=== PATIENT | female | born 1940 | race Caucasian/White ===

== ENCOUNTER → 2018-06-20 | Outpatient (CLI) | payer MEDICARE ==
--- NOTE | 2018-06-21 03:38 | US ---
EXAMINATION TYPE: US carotid duplex BILAT DATE OF EXAM: 06/20/2018 COMPARISON: NONE CLINICAL HISTORY: 77-year-old female I34.0, Nonrheumatic mitral (valve) insufficiency I65.23. No hx o f HTN. No hx of TIA or stroke. TECHNIQUE: Carotid duplex ultrasound examination. Indirect Doppler criteria was utilized. FINDINGS: EXAM MEASUREMENTS: RIGHT: Peak Systolic Velocity (PSV) cm/sec ----- Right CCA: 46.7 ----- Right ICA: 55.2 ----- Right ECA: 67.1 ICA/CCA ratio: 1.2 RIGHT: End Diastole cm/sec ----- Right CCA: 10.9 ----- Right ICA: 20.1 ----- Right ECA: 0.0 LEFT: Peak Systolic Velocity (PSV) cm/sec ----- Left CCA: 48.7 ----- Left ICA: 52.8 ----- Left ECA: 74.2 ICA/CCA ratio: 1.1 LEFT: End Diastole cm/sec ----- Left CCA: 12.9 ----- Left ICA: 9.5 ----- Left ECA: 30.3 VERTEBRALS (direction of flow): Right Vertebral: Antegrade Left Vertebral: Antegrade Rhythm: Normal Vault Cashier notes: No wall thickening, significant stenosis or elevated velocities. Plaque seen in l eft anterior bulb. IMPRESSION: No hemodynamically significant stenosis appreciated in either internal carotid artery. Criteria for Assigning % of Stenosis / Diameter reduction (Estimation based on the indirect measurements of the internal carotid artery velocities (ICA PSV). 1. Normal (no stenosis)=ICA PSV < 125 cm/s: ratio < 2.0: ICA EDV<40 cm/s. 2. Less than 50% stenosis=ICA PSV < 125 cm/s: ratio < 2.0: ICA EDV<40 cm/s. 3. 50 to 69% stenosis=ICA PSV of 125 to 230 cm/s: ration 2.0 ? 4.0: ICA EDV 40-100 cm/s. 4. Greater than 70% stenosis to near occlusion= ICA PSV > 230 cm/s: ratio > 4.0: ICA EDV > 100 cm/s. 5. Near occlusion= ICA PSV velocities may be low or undetectable: variable ratio and ICA EDV. 6. Total occlusion=unable to detect flow.
--- NOTE | 2018-06-21 11:43 | ECHOF ---
Referral Reason:I34.0,Nonrheumatic mitral (valve) insuffici I65.23 MEASUREMENTS -------- HEIGHT: 172.7 cm WEIGHT: 70.3 kg BP: RVIDd: 3.0 cm (< 3.3) IVSd: 0.9 cm (0.6 - 1.1) LVIDd: 3.8 cm (3.9 - 5.3) LVPWd: 1.1 cm (0.6 - 1.1) IVSs: 1.7 cm LVIDs: 1.8 cm LVPWs: 1.6 cm LAESV Index (A-L): 16.26 ml/m Ao Diam: 2.5 cm (2.0 - 3.7) AV Cusp: 1.8 cm (1.5 - 2.6) LA Diam: 2.8 cm (2.7 - 3.8) EPSS: 0.2 cm MV E Gagan: 0.64 m/s MV DecT: 268 ms MV A Gagan: 1.10 m/s MV E/A Ratio: 0.58 AV maxP.54 mmHg AV meanP.94 mmHg RAP: 5.00 mmHg RVSP: 22.28 mmHg MV EF SLOPE: 33.67 mm/s (70 - 150) MV EXCURSION: 1.04 cm (> 18.000) FINDINGS -------- Sinus rhythm. This was a technically good study. The left ventricular size is normal. Left ventricular wall thickness is normal. Overall left vent ricular systolic function is normal with, an EF between 55 - 60 %. The right ventricle is normal in size. Normal LA size by volume 22+/-6 ml/m2. The right atrial size is normal. Aortic valve is trileaflet and is mildly thickened. There is mild aortic valve sclerosis. Peak/me an gradient across the Aortic Valve is 10.54mmHg / 5.94mmHg. The mitral valve leaflets are mildly thickened. Mild mitral regurgitation is present. Trace tricuspid regurgitation present. The right ventricular systolic pressure, as measured by Dopp ler, is 22.28mmHg. There is no pulmonic regurgitation present. The aortic root size is normal. Normal inferior vena cava with normal inspiratory collapse consistent with estimated right atrial pre ssure of 5 mmHg. The pericardium is normal. CONCLUSIONS -------- 1. Sinus rhythm. 2. This was a technically good study. 3. The left ventricular size is normal. 4. Left ventricular wall thickness is normal. 5. Overall left ventricular systolic function is normal with, an EF between 55 - 60 %. 6. The right ventricle is normal in size. 7. Normal LA size by volume 22+/-6 ml/m2. 8. The right atrial size is normal. 9. Aortic valve is trileaflet and is mildly thickened. 10. There is mild aortic valve sclerosis. 11. Peak/mean gradient across the Aortic Valve is 10.54mmHg / 5.94mmHg. 12. The mitral valve leaflets are mildly thickened. 13. Mild mitral regurgitation is present. 14. Trace tricuspid regurgitation present. 15. The right ventricular systolic pressure, as measured by Doppler, is 22.28mmHg. 16. There is no pulmonic regurgitation present. 17. The aortic root size is normal. 18. Normal inferior vena cava with normal inspiratory collapse consistent with estimated right atrial pressure of 5 mmHg. 19. The pericardium is normal. BACTERIOLOGIST MEDICAL: Swetha Marroquin RDCS
== END | disposition home or self-care (01) ==
LOC: RADUSWWP 15:37
PROVIDERS: ATTEND Internal Medicine
DX: I34.0 Nonrheumatic mitral (valve) insufficiency (principal); I35.8 Other nonrheumatic aortic valve disorders; I65.23 Occlusion and stenosis of bilateral carotid arteries
CPT/HCPCS: 93306; 93880

== ENCOUNTER 2024-10-23 05:47 | Inpatient (IN) | payer MEDICARE ==
[2024-10-23 06:30] LABS: Basophils # (A) 0.07 10*3/uL (0.00-0.10); Basophils % (A) 0.9 %; Eosinophils # (A) 0.13 10*3/uL (0.04-0.35); Eosinophils % (A) 1.7 %; HCT 45.3 % (37.2-46.3); HGB 15.8 g/dL (12.0-15.0); Lymphocytes # (A) 1.29 10*3/uL (0.90-5.00); Lymphocytes % (A) 16.5 %; MCH 33.3 pg (27.0-32.0); MCHC 34.9 g/dL (32.0-37.0); MCV 95.6 fL (80.0-97.0); Monocytes # (A) 0.59 10*3/uL (0.20-1.00); Monocytes % (A) 7.6 %; Neutrophils # (A) 5.69 10*3/uL (1.80-7.70); Neutrophils % (A) 72.8 %; Platelet Count 229 10*3/uL (140-440); RBC 4.74 10*6/uL (4.10-5.20); RDW 11.9 % (11.5-14.5); WBC 7.81 10*3/uL (4.50-10.00)
[2024-10-23] MEDS: SODIUM CHLORIDE 0.9% 500 ML 500 ML IV STA (06:30)
[2024-10-23] MEDS: HEPARIN SODIUM 1,000 UN/ML (10ML VL) IV ONE (06:33)
[2024-10-23 06:46] LABS: ALT 15 U/L (4-34); AST 24 U/L (14-36); African American GFR (CKD) 88 (>60 ml/min/1.73 sqM); Albumin 4.4 g/dL (3.5-5.0); Alkaline Phosphatase 89 U/L (38-126); Anion Gap 11 mmol/L; Blood Urea Nitrogen 18 mg/dL (7-17); Calcium 11.1 mg/dL (8.4-10.2); Carbon Dioxide 21 mmol/L (22-30); Chloride 106 mmol/L (98-107); Glucose 113 mg/dL (74-99); Magnesium 2.2 mg/dL (1.6-2.3); Non-African American GFR(CKD) 76 (>60 ml/min/1.73 sqM); Potassium 4.3 mmol/L (3.5-5.1); Sodium 138 mmol/L (137-145); Total Protein 6.6 g/dL (6.3-8.2)
[2024-10-23 06:53] LABS: NT-Pro-B-Type Natriuretic Pept 229 pg/mL
[2024-10-23] MEDS: HEPARIN SODIUM,PORCINE/D5W 25,000 UNIT in EMPTY BAG 1 BAG IV SCH (06:54)
[2024-10-23 06:58] LABS: INR 0.9 (<1.2); Partial Thromboplastin Time 21.4 sec (22.0-30.0); Prothrombin Time 10.0 sec (10.0-12.5)
--- NOTE | 2024-10-23 06:58 | XR ---
EXAMINATION TYPE: XR chest 2V DATE OF EXAM: 10/23/2024 6:29 AM COMPARISON: None TECHNIQUE: XR chest 2V Frontal and lateral views of the chest. CLINICAL INDICATION:Female, 84 years old with history of Chest Pain; FINDINGS: Lungs/Pleura: There is no evidence of pleural effusion, focal consolidation, or pneumothorax. Pulmonary vascularity: Unremarkable. Heart/mediastinum: Cardiomediastinal silhouette is mildly enlarged. Atherosclerotic calcifications a re seen in the aorta. Musculoskeletal: No acute osseous pathology. IMPRESSION: No acute cardiopulmonary disease/process. [facility], , 10/23/2024 6:56 AM
[2024-10-23] MEDS: DILTIAZEM 5 MG/ML 5 ML VIAL IVP STA ×2 (07:01→07:57)
[2024-10-23] MEDS: DILTIAZEM 125 MG in DEXTROSE 5% IN WATER 100 ML IV SCH (07:11)
[2024-10-23] MEDS ORDERED: NITROGLYCERIN SL TABS 0.4 MG TAB SUBLINGUAL PRN (08:00)
--- NOTE | 2024-10-23 08:00 | ED ---
Chest Pain HPI - General Chief Complaint: Chest Pain Stated Complaint: chest pain Time Seen by Provider: 10/23/24 06:03 Source: patient, RN notes reviewed Mode of arrival: ambulatory Limitations: no limitations - History of Present Illness Initial Comments: 84-year-old female presents emergency department chief complaint of chest discomfort, shortness of breath. Patient states she did not feel well she states she had some indigestion that was heartburn. She took multiple doses of Tums without relief. Patient states that she has been dealing with shoulder discomfort show she thought it was related to that and took some Aleve. Patient states symptoms that she take her blood pressure and heart rate and noticed it was significantly elevated. Patient has no history of A-fib. Patient states chest discomfort comes and goes but feels more short of breath denies any leg pain or leg swelling no history of cardiac disease otherwise. - Related Data Allergies Allergy/AdvReac Type Severity Reaction Status Date / Time No Known Allergies Allergy Verified 10/23/24 05:51 Review of Systems ROS Statement: Those systems with pertinent positive or pertinent negative responses have been documented in the HPI. ROS Other: All systems not noted in ROS Statement are negative. EKG Findings - EKG Comments: EKG Findings:: EKG performed at 5: 58 A-fib with RVR rate of 134 QRS 102 QT/QTc 285/364 - EKG Results: EKG: interpreted by MAYRA Past Medical History Past Medical History: Cancer, Hyperlipidemia History of Any Multi-Drug Resistant Organisms: None Reported Past Surgical History: Joint Replacement, Orthopedic Surgery Past Psychological History: No Psychological Hx Reported Smoking Status: Never smoker Past Alcohol Use History: Occasional Past Drug Use History: None Reported General Exam Limitations: no limitations General appearance: alert, in no apparent distress Head exam: Present: atraumatic, normocephalic, normal inspection Eye exam: Present: normal appearance, PERRL, EOMI. Absent: scleral icterus, conjunctival injection, periorbital swelling ENT exam: Present: normal exam, normal oropharynx, mucous membranes moist Neck exam: Present: normal inspection, full ROM. Absent: tenderness, meningismus, lymphadenopathy Respiratory exam: Present: normal lung sounds bilaterally. Absent: respiratory distress, wheezes, rales, rhonchi, stridor Cardiovascular Exam: Present: tachycardia, irregular rhythm, normal heart sounds. Absent: systolic murmur, diastolic murmur, rubs, gallop, clicks Neurological exam: Present: alert, oriented X3 Course Vital Signs 10/23/24 10/23/24 10/23/24 05:48 06:15 07:05 Temperature 97.6 F Pulse Rate 131 H 150 H 146 H Respiratory 18 16 16 Rate Blood Pressure 127/97 108/98 137/115 O2 Sat by Pulse 98 96 93 L Oximetry 10/23/24 07:51 Temperature Pulse Rate 129 H Respiratory 17 Rate Blood Pressure 154/109 O2 Sat by Pulse 98 Oximetry Chest Pain MDM - MDM Was pt. sent in by a medical professional or institution (, PA, AT RISK SPECIALIST, urgent care, hospital, or care home...) When possible be specific @ -No Did you speak to anyone other than the patient for history (EMS, parent, family, police, friend...)? What history was obtained from this source @ -No Did you review nursing and triage notes (agree or disagree)? Why? @ -I reviewed and agree with nursing and triage notes Were old charts reviewed (outside hosp., previous admission, EMS record, old EKG, old radiological studies, urgent care reports/EKG's, care home records)? Report findings @ -No old charts were reviewed Differential Diagnosis (chest pain, altered mental status, abdominal pain women, abdominal pain men, vaginal bleeding, weakness, fever, dyspnea, syncope, headache, dizziness, GI bleed, back pain, seizure, CVA, palpatations, mental health, musculoskeletal)? @ -Differential Chest Pain: Stable Angina, Unstable Angina, STEMI, NSTEMI Aortic Dissection, Pneumothorax, Musculoskeletal, Esophageal Spasm GERD, Cholecystitis, Pancreatitis, Zoster, this is not meant to be an all-inclusive list. EKG interpreted by me (3pts min.). @ -As above X-rays interpreted by me (1pt min.). @ -Chest x-ray shows no acute cardiopulmonary process. CT interpreted by me (1pt min.). @ -None done U/S interpreted by me (1pt. min.). @ -None done What testing was considered but not performed or refused? (CT, X-rays, U/S, labs)? Why? @ -None What meds were considered but not given or refused? Why? @ -None Did you discuss the management of the patient with other professionals (professionals i.e. , PA, AT RISK SPECIALIST, lab, RT, psych nurse, secondary social studies teacher, manager security and safety, teacher, military source operations officer, disease case manager)? Give summary @ -Dr. Payton for admission Was smoking cessation discussed for >3mins.? @ -No Was critical care preformed (if so, how long)? @ -35 minutes Were there social determinants of health that impacted care today? How? (Homelessness, low income, unemployed, alcoholism, drug addiction, transportation, low edu. Level, literacy, decrease access to med. care, long term, rehab)? @ -No Was there de-escalation of care discussed even if they declined (Discuss DNR or withdrawal of care, Hospice)? DNR status @ -No What co-morbidities impacted this encounter? (DM, HTN, Smoking, COPD, CAD, Cancer, CVA, ARF, Chemo, Hep., AIDS, mental health diagnosis, sleep apnea, morbid obesity)? @ -None Was patient admitted / discharged? Hospital course, mention meds given and route, prescriptions, significant lab abnormalities, going to OR and other pertinent info. @ -Admitted patient presented for chest comfort, shortness of breath. Patient was found to be in new onset A-fib A-fib RVR. Patient was started on heparin, Cardizem. Patient found to have elevated troponin at 0.227 patient is on heparin will have repeat cardiac enzyme, cardiology evaluation, echocardiogram. Undiagnosed new problem with uncertain prognosis? @ -No Drug Therapy requiring intensive monitoring for toxicity (Heparin, Nitro, Insulin, Cardizem)? @ -Heparin, Cardizem Were any procedures done? @ -No Diagnosis/symptom? @ -A-fib RVR, NSTEMI Acute, or Chronic, or Acute on Chronic? @ -Acute Uncomplicated (without systemic symptoms) or Complicated (systemic symptoms)? @ -Complicated Side effects of treatment? @ -No Exacerbation, Progression, or Severe Exacerbation? @ -No Poses a threat to life or bodily function? How? (Chest pain, [place], SD, pneumonia, PE, COPD, DKA, ARF, appy, cholecystitis, CVA, Diverticulitis, Homicidal, Suicidal, threat to staff... and all critical care pts) @ -Yes threat to cardiac function Critical Care Time Critical Care Time: Yes Total Critical Care Time: 35 Disposition Clinical Impression: Acute non-ST elevation myocardial infarction (NSTEMI), Atrial fibrillation with rapid ventricular response, New onset a-fib Disposition: ADMITTED IP TO THIS HOSP Condition: Fair Referrals: Jayro Payton MD [Primary Care Provider] - 1-2 days Time of Disposition: 08:00
[2024-10-23] MEDS: ASPIRIN 81 MG PO STA (08:36)
[2024-10-23] MEDS: METOPROLOL SUCCINATE (ER) 50 MG TAB.ER.24H PO SCH (10:28)
--- NOTE | 2024-10-23 11:38 | P.CRDCN ---
History of Present Illness Consult date: 10/23/24 Reason for Consult (text): A-fib RVR, NSTEMI History of present illness: This is an 84-year-old female patient with no previous cardiac history and does not follow with a nutrition instructor. She has a past medical history of colon cancer status post colon resection 26 years ago, intolerance to statins. We have been asked to evaluate the patient for A-fib with RVR NSTEMI. Patient states that around 2 AM she developed chest pain that started first. She thought it was just heartburn or indigestion and she took some Tums without relief. Following that she took antiacid pill without relief. She also developed sweating and by 5:00 she woke up her and came into the hospital for further evaluation. She also states that it felt like her heart was pounding harder. The chest pain started first and the pounding started second. She states her symptoms are gone now. She has been started on heparin drip and Cardizem drip currently at 5 mg/h. Blood pressure 127/103, blood pressure 111, pulse ox 90% on 2 L nasal cannula. She presented with heart rate in the 150s. She was found to be in atrial fibrillation. In the past, she has tried Crestor, pravastatin, as well as a third statin. She was recently at her PCP office and was encouraged to start a statin as well as Zetia which she refused. Patient does ride an exercise bike on a regular basis and does not experience chest pain. Dr. Prakash discussed with the patient and her the plan to obtain repeat troponins, echocardiogram and determine if patient may require cardiac catheterization. -EKG: Atrial fibrillation 134 bpm. -Chest x-ray: No acute process. -Laboratory studies: Troponin 0.227, proBNP 229. BUN 18, creatinine 0.74, potassium 4.3 WBC 7.8, hemoglobin 15.8. -Home cardiac medications: None. -Echocardiogram performed in 2019 at [facility] revealed EF 55 to 60%, mild aortic valve sclerosis, mild mitral regurgitation, trace tricuspid regurgitation. Review Of Systems: At the time of my exam: CONSTITUTIONAL: Denies fever or chills. HEENT: Denies blurred vision, vision changes, or eye pain. Denies hemoptysis CARDIOVASCULAR: Denies chest pain. Denies orthopnea. Denies PND. Denies palpitations RESPIRATORY: Denies shortness of breath. GASTROINTESTINAL: Denies abdominal pain. Denies nausea or vomiting. HEMATOLOGIC: Denies bleeding disorders. GENITOURINARY: Denies any blood in urine. SKIN: Denies puritis. Denies rash. Physical examination: Gen: This is 84-year-old female in no acute distress VS: reviewed HEENT: Head is atraumatic, normocephalic. Pupils equal, round. Sclerae is anicteric. NECK: Supple. No JVD. LUNGS: Clear to auscultation. No wheezes or rhonchi. No intercostal retractions. HEART: Irregular rate and rhythm. ABDOMEN: Soft No tenderness. EXTREMITIES: No pedal edema. No calf tenderness. NEUROLOGICAL: Patient is awake, alert and oriented x3. Assessment: New onset paroxysmal atrial fibrillation with RVR NSTEMI History of colon cancer status post colon resection Hyperlipidemia Plan: Continue patient on Cardizem drip which is currently at 5 mg/h. Patient has been started on metoprolol succinate 50 mg daily Start patient on aspirin 81 mg daily Hold on statin as patient refuses Obtain lipid panel Repeat troponins which have not been drawn on time, stat troponin ordered Obtain 2-D echocardiogram and Doppler study to assess cardiac structure and function Further recommendations to follow based upon clinical course Thank you kindly for this consultation. Nurse practitioner note has been reviewed, I agree with documented findings and plan of care. Patient was seen and examined. Past Medical History Past Medical History: Cancer, Hyperlipidemia History of Any Multi-Drug Resistant Organisms: None Reported Past Surgical History: Joint Replacement, Orthopedic Surgery Past Psychological History: No Psychological Hx Reported Smoking Status: Never smoker Past Alcohol Use History: Occasional Past Drug Use History: None Reported Medications and Allergies Home Medications Medication Instructions Recorded Confirmed Type No Known Home Medications 10/23/24 10/23/24 History Allergies Allergy/AdvReac Type Severity Reaction Status Date / Time No Known Allergies Allergy Verified 10/23/24 08:21 Physical Exam Vitals: Vital Signs Temp Pulse Resp BP Pulse Ox 10/23/24 08:38 118 H 18 118/93 97 10/23/24 07:51 129 H 17 154/109 98 10/23/24 07:05 146 H 16 137/115 93 L 10/23/24 06:15 150 H 16 108/98 96 10/23/24 05:48 97.6 F 131 H 18 127/97 98 Intake and Output 10/22/24 10/23/24 10/23/24 22:59 06:59 14:59 Other: Weight 68.039 kg Results 10/23/24 06:18 10/23/24 06:18 Cardiac Enzymes 10/23/24 10/23/24 Range/Units 06:18 06:18 AST 24 (14-36) U/L Troponin I 0.227 H* (0.000-0.034) ng/mL Coagulation 10/23/24 Range/Units 06:18 PT 10.0 (10.0-12.5) sec APTT 21.4 L (22.0-30.0) sec CBC 10/23/24 Range/Units 06:18 WBC 7.81 (4.50-10.00) 10*3/uL RBC 4.74 (4.10-5.20) 10*6/uL Hgb 15.8 H (12.0-15.0) g/dL Hct 45.3 (37.2-46.3) % Plt Count 229 (140-440) 10*3/uL Comprehensive Metabolic Panel 10/23/24 Range/Units 06:18 Sodium 138 (137-145) mmol/L Potassium 4.3 (3.5-5.1) mmol/L Chloride 106 (98-107) mmol/L Carbon Dioxide 21 L (22-30) mmol/L BUN 18 H (7-17) mg/dL Creatinine 0.74 (0.52-1.04) mg/dL Glucose 113 H (74-99) mg/dL Calcium 11.1 H (8.4-10.2) mg/dL AST 24 (14-36) U/L ALT 15 (4-34) U/L Alkaline Phosphatase 89 (38-126) U/L Total Protein 6.6 (6.3-8.2) g/dL Albumin 4.4 (3.5-5.0) g/dL Current Medications Generic Name Dose Route Start Last Admin Trade Name Freq PRN Reason Stop Dose Admin Aspirin 325 mg 10/24/24 09:00 Aspirin 325 Mg Tab PO DAILY OREN Heparin Sodium (Porcine) 0 unit 10/23/24 06:17 Heparin Sodium 1,000 Un/Ml (10ml Vl) IV PER PROTOCOL PRN Low PTT Protocol Diltiazem HCl 125 mg/ Dextrose 125 mls @ 5 mls/hr 10/23/24 06:15 10/23/24 07:11 /Water IV 5 mg/hr .Q24H OREN 5 mls/hr Administration Protocol 5 MG/HR Heparin Sodium/Dextrose 25,000 250 mls @ 8.165 mls/hr 10/23/24 06:30 10/23/24 06:54 unit/ IV Solution IV 12 unit/kg/hr .Q24H OREN 8.165 mls/hr Administration Protocol 12 UNIT/KG/HR Metoprolol Succinate 50 mg 10/23/24 10:15 Metoprolol Succinate (Er) 50 Mg Tab.Er.24h PO DAILY OREN Nitroglycerin 0.4 mg 10/23/24 08:00 Nitroglycerin Sl Tabs 0.4 Mg Tab SUBLINGUAL Q5M PRN Chest Pain Pantoprazole Sodium 40 mg 10/24/24 07:30 Pantoprazole 40 Mg Tablet PO AC-BRKFST OREN Intake and Output 10/22/24 10/23/24 10/23/24 22:59 06:59 14:59 Other: Weight 68.039 kg 10/23/24 06:18 10/23/24 06:18
--- NOTE | 2024-10-23 12:54 | P.HPIM ---
History of Present Illness H&P Date: 10/23/24 Chief Complaint: Atrial fibrillation with RVR HISTORY OF PRESENT ILLNESS: This is an 84-year-old female with a previous medical history significant for mixed hyperlipidemia, history of colon cancer in the past status post partial colectomy currently in remission, history of melanoma, history of osteoporosis, patient woke up at 2:00 in the morning from sleep because of heaviness in her chest associated with a cold sweat, she thought that she is having indigestion, she took 2 Tums followed by another 2 times, with no relief, she started to have the cold sweat at that time, she felt palpitation as well as shortness of breath, she ended up waking up her who brought her to the emergency department for evaluation, she was found to be in atrial fibrillation with rapid regular spots, her troponin was slightly elevated at 0.22 she was started on heparin drip and Cardizem drip, she was seen in the emergency department, she is currently on Cardizem drip at 5 mg/h, her heart rate is around 122, she is also on baby aspirin 81 mg once every day, patient is intolerant of statin that she does not want take any statin at this point in time, she will be seen in consultation by cardiology, continue patient on the current treatment plan, add metoprolol succinate ER 50 mg once every day, admit the patient to telemetry unit, echocardiogram for evaluation of LV function. REVIEW OF SYSTEMS: Constitutional: No documented fever, no chills, no night sweats. No weight change. No weakness, fatigue or lethargy. No daytime sleepiness. EENT: No headache. No blurred vision or double vision, no loss of vision. No loss of Hearing, no ringing in the ears, no dizziness. No nasal drainage or congestion. No epistaxis. No sore throat. Lungs: Positive for shortness of breath, no cough, no sputum production. No wheezing. Reports dyspnea with activity. Cardiovascular: Positive for chest pain, no lower extremity edema. Positive for palpitations. No paroxysmal nocturnal dyspnea. No orthopnea. No lightheadedness or dizziness. No syncopal episodes. Abdominal: Reports abdominal pain. No nausea, vomiting. No diarrhea. No constipation. No bloody or tarry stools reports loss of appetite. Genitourinary: No dysuria, increased frequency, urgency. No urinary retention. Musculoskeletal: No myalgias. No muscle weakness, no gait dysfunction, no imelda quent falls. No back pain. No neck pain. Positive for right shoulder pain. Integumentary: No wounds, no lesions. No rash or pruritus. No unusual bruising. No change in hair or nails. Neurologic: No aphasia. No facial droop. No change in mentation. No head injury. No headache. No paralysis. No paresthesia. Psychiatric: No depression. No anxiety. No mood swings. Endocrine: No abnormal blood sugars. No weight change. PAST MEDICAL HISTORY: Mixed hyperlipidemia. History of colon cancer status post partial colectomy currently in remission. Melanoma. Osteoporosis. Tendinitis of the right shoulder. Osteoarthritis. PAST SURGICAL HISTORY: Partial colectomy 1998. Melanoma removed from the nose 2019. Colonoscopy 2015. Left total knee arthroplasty 08/14/2022. SOCIAL HISTORY: Patient is a lifelong non-smoker, she drinks socially, she denies any marijuana use or abuse, she lives with her . FAMILY HISTORY: Father at the age of 92 from colon cancer he also had history of bladder cancer and prostate cancer, mother at the age of 99 from old age, she had history of hyperlipidemia and hypertension, patient has 1 sister alive and well with C. difficile, patient has 2 sons alive and well, and 1 daughter no major medical problems. PHYSICAL EXAMINATION: General: 84-year-old female laying down in bed in no apparent distress. HEENT: Head is atraumatic, normocephalic, pupils were equal round reactive to light and recommendation, extraocular muscle movement were intact, sclera nonicteric, conjunctivae were pale, mucous membranes of the mouth are somewhat dry. Neck: Supple, no JVP, normal carotid upstroke bilaterally, no lymphadenopathy. Chest: Decreased breath sounds at the bases, few rhonchi, no expiratory wheezes, no chest wall tenderness, no intercostal retractions. Heart: First heart sound is normal, second heart sounds normal, there are systolic ejection murmur 2/6 located in the left sternal border, irregularly irregular due to atrial fibrillation Abdomen: Soft, nontender, nondistended, positive bowel sounds. Extremities: There is no edema no calf tenderness DP +2 bilaterally. Neurologic examination: Patient is awake alert and oriented x3, cranial nerves II-12 appear grossly intact, muscle power were 5 out of 5 in upper extremities and 5 out of 5 in bilateral lower extremities, deep tendon reflexes normal bilaterally. ASSESSMENT AND PLAN: 1. Atrial fibrillation with rapid ventricular response. Continue heparin drip, continue Cardizem drip at 5 mg an hour, start metoprolol ER 50 mg orally once every day, echocardiogram for evaluation of LV function, cardiology consultation, 2. Type II [place] likely related to A-fib with RVR. Echocardiogram will be obtained, baby aspirin 81 mg once every day, metoprolol ER 50 mg once every day, patient is intolerant to statin and she refuses statin at this time, we will discuss with the patient whether or not she need to be on Repatha PCSK9 inhibitor as an outpatient. Echocardiogram for evaluation of LV function, cardiology consultation, EKG does not show any evidence of acute changes except for atrial fibrillation. 3. Mixed hyperlipidemia.. Patient is not able to tolerate statin at this time, she may be a candidate for PCSK9 inhibitors. 4. History of osteoporosis stable at this time. 5. History of colon cancer status post partial colectomy currently in remission. 6. History of melanoma status post resection. 7. Tendinitis of the right shoulder stable at this time. 8. DVT prophylaxis. Currently on heparin drip. 9. GI prophylaxis. Continue Protonix 40 mg once every day. 10. Admit to inpatient. Estimated length of stay 2 midnights. 11. Patient is full code. Past Medical History Past Medical History: Cancer, Hyperlipidemia History of Any Multi-Drug Resistant Organisms: None Reported Past Surgical History: Joint Replacement, Orthopedic Surgery Past Psychological History: No Psychological Hx Reported Smoking Status: Never smoker Past Alcohol Use History: Occasional Past Drug Use History: None Reported Medications and Allergies Home Medications Medication Instructions Recorded Confirmed Type No Known Home Medications 10/23/24 10/23/24 History Allergies Allergy/AdvReac Type Severity Reaction Status Date / Time No Known Allergies Allergy Verified 10/23/24 08:21 Physical Exam Vitals: Vital Signs Temp Pulse Resp BP Pulse Ox 10/23/24 08:38 118 H 18 118/93 97 10/23/24 07:51 129 H 17 154/109 98 10/23/24 07:05 146 H 16 137/115 93 L 10/23/24 06:15 150 H 16 108/98 96 10/23/24 05:48 97.6 F 131 H 18 127/97 98 Intake and Output 10/22/24 10/23/24 10/23/24 22:59 06:59 14:59 Other: Weight 68.039 kg Results CBC & Chem 7: 10/23/24 06:18 10/23/24 06:18 Labs: Abnormal Lab Results - Last 24 Hours (Table) 10/23/24 10/23/24 10/23/24 Range/Units 06:18 06:18 06:18 Hgb 15.8 H (12.0-15.0) g/dL MCH 33.3 H (27.0-32.0) pg APTT 21.4 L (22.0-30.0) sec Carbon Dioxide 21 L (22-30) mmol/L BUN 18 H (7-17) mg/dL Glucose 113 H (74-99) mg/dL Calcium 11.1 H (8.4-10.2) mg/dL Troponin I (0.000-0.034) ng/mL 10/23/24 Range/Units 06:18 Hgb (12.0-15.0) g/dL MCH (27.0-32.0) pg APTT (22.0-30.0) sec Carbon Dioxide (22-30) mmol/L BUN (7-17) mg/dL Glucose (74-99) mg/dL Calcium (8.4-10.2) mg/dL Troponin I 0.227 H* (0.000-0.034) ng/mL
[2024-10-23] MEDS: HEPARIN SODIUM 1,000 UN/ML (10ML VL) IV PRN (14:35)
[2024-10-23] MEDS ORDERED: ATORVASTATIN 40 MG TAB PO SCH (21:00)
[2024-10-24] MEDS: PANTOPRAZOLE 40 MG TABLET PO SCH (06:56)
[2024-10-24 07:22] LABS: Basophils # (A) 0.06 10*3/uL (0.00-0.10); Basophils % (A) 0.9 %; Eosinophils # (A) 0.14 10*3/uL (0.04-0.35); Eosinophils % (A) 2.1 %; HCT 42.2 % (37.2-46.3); HGB 14.1 g/dL (12.0-15.0); Lymphocytes # (A) 1.79 10*3/uL (0.90-5.00); Lymphocytes % (A) 26.6 %; MCH 32.3 pg (27.0-32.0); MCHC 33.4 g/dL (32.0-37.0); MCV 96.8 fL (80.0-97.0); Monocytes # (A) 0.50 10*3/uL (0.20-1.00); Monocytes % (A) 7.4 %; Neutrophils # (A) 4.19 10*3/uL (1.80-7.70); Neutrophils % (A) 62.4 %; Platelet Count 207 10*3/uL (140-440); RBC 4.36 10*6/uL (4.10-5.20); RDW 12.0 % (11.5-14.5); WBC 6.72 10*3/uL (4.50-10.00)
[2024-10-24 07:29] LABS: INR 1.0 (<1.2); Prothrombin Time 10.8 sec (10.0-12.5)
--- NOTE | 2024-10-24 07:36 | CA ---
Transthoracic Echo Report Name: Jumana Alcantar Age: 84 Gender: F : 1940 Exam Date: 10/23/2024 14:42 Exam Location: [facility] Ht (in): 67 Wt (lb): 150 Ordering Physician: Kirt Tucker PAC Attending/Referring Phys: [id number], Garrett Artificial Breeding Technician Cornelio Blanco RDCS Procedure CPT: Indications: nstemi, afib Cardiac Hx: Technical Quality: Fair Contrast 1: Total Dose (mL): Contrast 2: Total Dose (mL): MEASUREMENTS (Male / Female) Normal Values 2D ECHO LV Diastolic Diameter PLAX 3.1 cm 4.2 - 5.9 / 3.9 - 5.3 cm LV Systolic Diameter PLAX 2.3 cm IVS Diastolic Thickness 1.9 cm 0.6 - 1.0 / 0.6 - 0.9 cm LVPW Diastolic Thickness 1.7 cm 0.6 - 1.0 / 0.6 - 0.9 cm LV Relative Wall Thickness 1.1 RV Internal Dim ED PLAX 2.1 cm LVOT Diameter 1.8 cm LA Systolic Diameter LX 3.9 cm 3.0 - 4.0 / 2.7 - 3.8 cm LV Diastolic Volume MOD BP 30.2 cm??? 67 - 155 / 56 - 104 cm??? LV Systolic Volume MOD BP 15.2 cm??? 22 - 58 / 19 - 49 cm??? LV Ejection Fraction MOD BP 49.6 % >= 55 % LV Cardiac Index MOD BP 915.7 cm???/min???m??? LV Diastolic Volume MOD 4C 42.0 cm??? LV Systolic Volume MOD 4C 17.3 cm??? LV Ejection Fraction MOD 4C 58.7 % LV Cardiac Index MOD 4C 1510.3 cm???/min???m??? LV Diastolic Length 4C 5.8 cm LV Systolic Length 4C 5.1 cm LV Diastolic Volume MOD 2C 21.6 cm??? LV Systolic Volume MOD 2C 13.1 cm??? LV Ejection Fraction MOD 2C 39.7 % LV Cardiac Index MOD 2C 525.0 cm???/min???m??? LV Diastolic Length 2C 5.9 cm LV Systolic Length 2C 5.2 cm LA Volume 59.1 cm??? 18 - 58 / 22 - 52 cm??? LA Volume Index 32.9 cm???/m??? 16 - 28 cm???/m??? Ascending Aorta Diameter 3.1 cm Aorta at Sinuses Diameter 3.3 cm M-MODE Aortic Root Diameter MM 2.9 cm LA Systolic Diameter MM 3.9 cm LA Ao Ratio MM 1.3 AV Cusp Separation MM 1.7 cm DOPPLER AV Peak Velocity 164.9 cm/s AV Peak Gradient 10.9 mmHg AV Mean Velocity 127.5 cm/s AV Mean Gradient 7.3 mmHg AV Velocity Time Integral 31.5 cm LVOT Peak Velocity 171.3 cm/s LVOT Peak Gradient 11.7 mmHg LVOT Velocity Time Integral 22.9 cm LVOT Stroke Volume 58.3 cm??? LVOT Stroke Volume Index 32.6 ml/m??? LVOT Cardiac Index 3565.8 cm???/min???m??? AV Area Cont Eq vti 1.9 cm??? AV Area Cont Eq pk 2.6 cm??? MV Peak Velocity 172.4 cm/s MV Peak Gradient 11.9 mmHg MV Mean Velocity 102.1 cm/s MV Mean Gradient 5.0 mmHg MV Velocity Time Integral 33.6 cm TR Peak Velocity 219.4 cm/s TR Peak Gradient 19.3 mmHg FINDINGS Left Ventricle Left ventricular ejection fraction is estimated at 55-60 %. Normal left ventricular systolic function with no obvious regional wall motion abnormalities. Left ventricular cavity size normal. Severely increased left ventricular wall thickness. Right Ventricle Normal right ventricular size and function. Right Atrium Normal right atrial size. No right atrial thrombus or mass seen. Left Atrium Mildly increased left atrial volume. No left atrial thrombus or mass present. Mitral Valve No mitral stenosis. Mild mitral regurgitation.mitral annular calcification. Aortic Valve No aortic stenosis. No aortic regurgitation. Severe aortic valve sclerosis. May have been been underestimated Tricuspid Valve No tricuspid stenosis. Moderate eccentric tricuspid regurgitation. Pulmonic Valve No pulmonic stenosis. Trace pulmonic regurgitation. Pericardium Normal pericardium. No pericardial or pleural effusion. Aorta Normal size aortic root and proximal ascending aorta. CONCLUSIONS 1. Normal left ventricular size and systolic function 2. Calcification of the mitral valve with mild mitral regurgitation 3. Severe calcifications of the aortic valve, the peak gradient may have been underestimated 4. Moderate eccentric mitral regurgitation Previewed by: Dr. Dangelo Delaney MD (Electronically Signed) Final Date: 24 October 2024 07:36
[2024-10-24 08:09] LABS: ALT 12 U/L (4-34); AST 24 U/L (14-36); African American GFR (CKD) 83 (>60 ml/min/1.73 sqM); Albumin 3.5 g/dL (3.5-5.0); Alkaline Phosphatase 61 U/L (38-126); Anion Gap 6 mmol/L; Blood Urea Nitrogen 17 mg/dL (7-17); Calcium 9.0 mg/dL (8.4-10.2); Carbon Dioxide 24 mmol/L (22-30); Chloride 108 mmol/L (98-107); Glucose 105 mg/dL (74-99); Non-African American GFR(CKD) 72 (>60 ml/min/1.73 sqM); Potassium 4.2 mmol/L (3.5-5.1); Sodium 138 mmol/L (137-145); Total Protein 5.5 g/dL (6.3-8.2)
[2024-10-24] MEDS ORDERED: ASPIRIN 325 MG TAB PO SCH (09:00)
[2024-10-24] MEDS: ASPIRIN 81 MG PO SCH (09:01)
[2024-10-24] MEDS ORDERED: NITROGLYCERIN SL TABS 0.4 MG TAB SUBLINGUAL PRN (09:06)
[2024-10-24] MEDS: DIGOXIN 250 MCG TAB PO SCH (10:25)
[2024-10-24] MEDS: METOPROLOL SUCCINATE (ER) 25 MG TAB.ER.24H PO STA (10:25)
[2024-10-24 10:35] LABS: Cholesterol 292.00 mg/dL (0.00-200.00); HDL Cholesterol 77.10 mg/dL (40.00-60.00); LDL Cholesterol,Calculated 188.3 mg/dL (0.0-131.0); Triglycerides 133.00 mg/dL (0.00-149.00); VLDL Calculation 26.60 mg/dL (5.00-40.00)
--- NOTE | 2024-10-24 13:52 | P.PN ---
Subjective Progress Note Date: 10/24/24 Reason for Consult (text): A-fib RVR, NSTEMI History of present illness: This is an 84-year-old female patient with no previous cardiac history and does not follow with a volunteer services director. She has a past medical history of colon cancer status post colon resection 26 years ago, intolerance to statins. We have been asked to evaluate the patient for A-fib with RVR NSTEMI. Patient states that around 2 AM she developed chest pain that started first. She thought it was just heartburn or indigestion and she took some Tums without relief. Following that she took antiacid pill without relief. She also developed sweating and by 5:00 she woke up her and came into the hospital for further evaluation. She also states that it felt like her heart was pounding harder. The chest pain started first and the pounding started second. She states her symptoms are gone now. She has been started on heparin drip and Cardizem drip currently at 5 mg/h. Blood pressure 127/103, blood pressure 111, pulse ox 90% on 2 L nasal cannula. She presented with heart rate in the 150s. She was found to be in atrial fibrillation. In the past, she has tried Crestor, pravastatin, as well as a third statin. She was recently at her PCP office and was encouraged to start a statin as well as Zetia which she refused. Patient does ride an exercise bike on a regular basis and does not experience chest pain. Dr. Prakash discussed with the patient and her the plan to obtain repeat troponins, echocardiogram and determine if patient may require cardiac catheterization. -EKG: Atrial fibrillation 134 bpm. -Chest x-ray: No acute process. -Laboratory studies: Troponin 0.227, proBNP 229. BUN 18, creatinine 0.74, potassium 4.3 WBC 7.8, hemoglobin 15.8. -Home cardiac medications: None. -Echocardiogram performed in 2019 at [facility] revealed EF 55 to 60%, mild aortic valve sclerosis, mild mitral regurgitation, trace tricuspid regurgitation. 10/24/2024 Patient seen and examined. Patient states that she is feeling much better today. She denies chest pain or chest pressure, no palpitations. She remains in atrial fibrillation with heart rate running 101-138. Patient remains on Cardizem drip at 5 mg/h. Triglycerides 133, cholesterol 292, LDL 188. Repeat troponin 0.902 and 1.01. Echocardiogram reveals EF of 55 to 60%, mild mitral regurgitation, moderate eccentric tricuspid regurgitation. Dr. Nguyễn Prakash discussed with the patient and recommendations for cardiac catheterization. Patient is agreeable and we will plan to move forward with this tomorrow if heart rate is controlled. Physical examination: Gen: This is 84-year-old female in no acute distress VS: reviewed HEENT: Head is atraumatic, normocephalic. Pupils equal, round. Sclerae is anicteric. NECK: Supple. No JVD. LUNGS: Clear to auscultation. No wheezes or rhonchi. No intercostal retractions. HEART: Irregular rate and rhythm. ABDOMEN: Soft No tenderness. EXTREMITIES: No pedal edema. No calf tenderness. NEUROLOGICAL: Patient is awake, alert and oriented x3. Assessment: New onset paroxysmal atrial fibrillation with RVR NSTEMI History of colon cancer status post colon resection Hyperlipidemia Plan: Continue patient on Cardizem drip which is currently at 5 mg/h wean off Cardizem if heart rate is controlled this afternoon. Increase metoprolol succinate to 75 mg daily Continue patient on aspirin 81 mg daily Hold on statin as patient refuses Schedule patient for cardiac catheterization tomorrow with Dr. Nguyễn Prakash if heart rate is controlled N.p.o. after midnight Further recommendations to follow based upon clinical course Nurse practitioner note has been reviewed, I agree with documented findings and plan of care. Patient was seen and examined. Objective - Vital Signs Vital signs: Vital Signs Temp 97.4 F L 10/24/24 08:00 Pulse 116 H 10/24/24 08:00 Resp 16 10/24/24 08:00 BP 106/65 10/24/24 08:00 Pulse Ox 97 10/24/24 08:00 FiO2 Intake & Output 10/23/24 10/24/24 10/24/24 18:59 06:59 18:59 Intake Total 62.734 255.69 Balance 62.734 255.69 Weight 70 kg Intake: Intake, IV Titration 62.734 255.69 Amount Diltiazem 125 mg In 110.5 Dextrose 5% in Water 100 ml @ 5 MG/HR 5 mls/hr IV .Q24H [facility] Rx#:[id number] Heparin Sodium,Porcine/ 62.734 145.19 D5w 25,000 unit In Empty Bag 1 bag @ 12 UNIT/KG/HR 8.165 mls/hr IV .Q24H [facility] Rx#:[id number] Other: Voiding Method Toilet # Voids 1 - Labs CBC & Chem 7: 10/24/24 06:37 10/24/24 06:37 Labs: Abnormal Lab Results - Last 24 Hours (Table) 10/23/24 10/23/24 10/23/24 Range/Units 13:54 13:54 21:12 MCH (27.0-32.0) pg APTT 35.0 H (22.0-30.0) sec Chloride (98-107) mmol/L Glucose (74-99) mg/dL Troponin I 0.902 H* 1.010 H* (0.000-0.034) ng/mL Total Protein (6.3-8.2) g/dL 10/23/24 10/24/24 10/24/24 Range/Units 21:12 06:37 06:37 MCH 32.3 H (27.0-32.0) pg APTT 50.6 H (22.0-30.0) sec Chloride 108 H (98-107) mmol/L Glucose 105 H (74-99) mg/dL Troponin I (0.000-0.034) ng/mL Total Protein 5.5 L (6.3-8.2) g/dL 10/24/24 Range/Units 06:37 MCH (27.0-32.0) pg APTT 53.2 H (22.0-30.0) sec Chloride (98-107) mmol/L Glucose (74-99) mg/dL Troponin I (0.000-0.034) ng/mL Total Protein (6.3-8.2) g/dL
--- NOTE | 2024-10-24 15:11 | P.PN ---
Subjective Progress Note Date: 10/24/24 Chief Complaint: Atrial fibrillation with RVR HISTORY OF PRESENT ILLNESS: This is an 84-year-old female with a previous medical history significant for mixed hyperlipidemia, history of colon cancer in the past status post partial colectomy currently in remission, history of melanoma, history of osteoporosis, patient woke up at 2:00 in the morning from sleep because of heaviness in her chest associated with a cold sweat, she thought that she is having indigestion, she took 2 Tums followed by another 2 times, with no relief, she started to have the cold sweat at that time, she felt palpitation as well as shortness of breath, she ended up waking up her who brought her to the emergency department for evaluation, she was found to be in atrial fibrillation with rapid regular spots, her troponin was slightly elevated at 0.22 she was started on heparin drip and Cardizem drip, she was seen in the emergency department, she is currently on Cardizem drip at 5 mg/h, her heart rate is around 122, she is also on baby aspirin 81 mg once every day, patient is in tolerant of statin that she does not want take any statin at this point in time, she will be seen in consultation by cardiology, continue patient on the current treatment plan, add metoprolol succinate ER 50 mg once every day, admit the patient to telemetry unit, echocardiogram for evaluation of LV function. 10/24: Patient sitting up in bed she continues to have minimal shortness of breath, her heart rate is down to 110 continues to be in atrial fibrillation somewhat fast response, her metoprolol ER was increased to 75 mg once every day, continue Cardizem drip, continue heparin drip, she is scheduled to go for left heart catheterization, she ended up going for an echocardiogram that showed evidence of normal LV function, with moderate mitral regurgitation, and severe calcification of the aortic valve, no gradient was calculated, patient is scheduled for heart cath tomorrow morning, she is aware of the plan, continue current treatment plan for now. I had a long conversation with the patient about the importance of taking statin however she is intolerant of statin therefore the patient can be started on Repatha 140 mg subcutaneously every 2 weeks or inclisiran once every 6-month the first year 3 doses and 2 doses thereafter. REVIEW OF SYSTEMS: Constitutional: No documented fever, no chills, no night sweats. No weight change. No weakness, fatigue or lethargy. No daytime sleepiness. EENT: No headache. No blurred vision or double vision, no loss of vision. No loss of Hearing, no ringing in the ears, no dizziness. No nasal drainage or congestion. No epistaxis. No sore throat. Lungs: Positive for shortness of breath, no cough, no sputum production. No wheezing. Reports dyspnea with activity. Cardiovascular: No chest pain, no lower extremity edema. Positive for palpitations. No paroxysmal nocturnal dyspnea. No orthopnea. No lightheadedness or dizziness. No syncopal episodes. Abdominal: Reports abdominal pain. No nausea, vomiting. No diarrhea. No cons tipation. No bloody or tarry stools reports loss of appetite. Genitourinary: No dysuria, increased frequency, urgency. No urinary retention. Musculoskeletal: No myalgias. No muscle weakness, no gait dysfunction, no frequent falls. No back pain. No neck pain. Positive for right shoulder pain. Integumentary: No wounds, no lesions. No rash or pruritus. No unusual bruising. No change in hair or nails. Neurologic: No aphasia. No facial droop. No change in mentation. No head injury. No headache. No paralysis. No paresthesia. Psychiatric: No depression. No anxiety. No mood swings. Endocrine: No abnormal blood sugars. No weight change. PHYSICAL EXAMINATION: General: 84-year-old female laying down in bed in no apparent distress. HEENT: Head is atraumatic, normocephalic, pupils were equal round reactive to light and recommendation, extraocular muscle movement were intact, sclera nonicteric, conjunctivae were pale, mucous membranes of the mouth are somewhat dry. Neck: Supple, no JVP, normal carotid upstroke bilaterally, no lymphadenopathy. Chest: Decreased breath sounds at the bases, few rhonchi, no expiratory wheezes, no chest wall tenderness, no intercostal retractions. Heart: First heart sound is normal, second heart sounds normal, there are systolic ejection murmur 2/6 located in the left sternal border, irregularly irregular due to atrial fibrillation Abdomen: Soft, nontender, nondistended, positive bowel sounds. Extremities: There is no edema no calf tenderness DP +2 bilaterally. Neurologic examination: Patient is awake alert and oriented x3, cranial nerves II-12 appear grossly intact, muscle power were 5 out of 5 in upper extremities and 5 out of 5 in bilateral lower extremities, deep tendon reflexes normal bilaterally. ASSESSMENT AND PLAN: 1. Atrial fibrillation with rapid ventricular response. Continue heparin drip, continue Cardizem drip at 5 mg an hour, continue metoprolol ER 75 mg once every day, patient is scheduled to go for left heart catheterization tomorrow morning. 2. Type II [place] likely related to A-fib with RVR/non-ST elevation VA. Echocardiogram was reviewed, baby aspirin 81 mg once every day, metoprolol ER 75 mg once every day, patient is intolerant to statin and she refuses statin at this time, we will discuss with the patient whether or not she need to be on Repatha PCSK9 inhibitor as an outpatient. 3. Mixed hyperlipidemia.. Patient is not able to tolerate statin at this time, she may be a candidate for PCSK9 inhibitors. 4. History of osteoporosis stable at this time. 5. History of colon cancer status post partial colectomy currently in remission. 6. History of melanoma status post resection. 7. Tendinitis of the right shoulder stable at this time. 8. DVT prophylaxis. Currently on heparin drip. 9. GI prophylaxis. Continue Protonix 40 mg once every day. Objective - Vital Signs Vital signs: Vital Signs Temp 97.4 F L 10/24/24 08:00 Pulse 116 H 10/24/24 08:00 Resp 16 10/24/24 08:00 BP 106/65 10/24/24 08:00 Pulse Ox 97 10/24/24 08:00 FiO2 Intake & Output 10/23/24 10/24/24 10/24/24 18:59 06:59 18:59 Intake Total 62.734 255.69 240 Balance 62.734 255.69 240 Weight 70 kg Intake: Intake, IV Titration 62.734 255.69 Amount Diltiazem 125 mg In 110.5 Dextrose 5% in Water 100 ml @ 5 MG/HR 5 mls/hr IV .Q24H [facility] Rx#:[id number] Heparin Sodium,Porcine/ 62.734 145.19 D5w 25,000 unit In Empty Bag 1 bag @ 12 UNIT/KG/HR 8.165 mls/hr IV .Q24H [facility] Rx#:[id number] Oral 240 Other: Voiding Method Toilet Toilet # Voids 1 - Labs CBC & Chem 7: 10/24/24 06:37 10/24/24 06:37 Labs: Abnormal Lab Results - Last 24 Hours (Table) 10/23/24 10/23/24 10/23/24 Range/Units 13:54 13:54 21:12 MCH (27.0-32.0) pg APTT 35.0 H (22.0-30.0) sec Chloride (98-107) mmol/L Glucose (74-99) mg/dL Troponin I 0.902 H* 1.010 H* (0.000-0.034) ng/mL Total Protein (6.3-8.2) g/dL 10/23/24 10/24/24 10/24/24 Range/Units 21:12 06:37 06:37 MCH 32.3 H (27.0-32.0) pg APTT 50.6 H (22.0-30.0) sec Chloride 108 H (98-107) mmol/L Glucose 105 H (74-99) mg/dL Troponin I (0.000-0.034) ng/mL Total Protein 5.5 L (6.3-8.2) g/dL 10/24/24 Range/Units 06:37 MCH (27.0-32.0) pg APTT 53.2 H (22.0-30.0) sec Chloride (98-107) mmol/L Glucose (74-99) mg/dL Troponin I (0.000-0.034) ng/mL Total Protein (6.3-8.2) g/dL
[2024-10-24 16:42] LABS: ALT 13 U/L (4-34); AST 23 U/L (14-36); African American GFR (CKD) 60 (>60 ml/min/1.73 sqM); Albumin 3.7 g/dL (3.5-5.0); Alkaline Phosphatase 72 U/L (38-126); Anion Gap 7 mmol/L; Blood Urea Nitrogen 22 mg/dL (7-17); Calcium 9.1 mg/dL (8.4-10.2); Carbon Dioxide 23 mmol/L (22-30); Chloride 108 mmol/L (98-107); Glucose 104 mg/dL (74-99); Non-African American GFR(CKD) 52 (>60 ml/min/1.73 sqM); Potassium 4.1 mmol/L (3.5-5.1); Sodium 138 mmol/L (137-145); Total Protein 5.9 g/dL (6.3-8.2)
[2024-10-24] MEDS: ALPRAZolam 0.5 MG TAB PO PRN (22:54)
[2024-10-25] MEDS: METOPROLOL SUCCINATE (ER) 25 MG TAB.ER.24H PO SCH (06:05)
[2024-10-25] MEDS: ALPRAZolam 0.25 MG TAB PO PRN (06:05)
[2024-10-25] MEDS: ASPIRIN 325 MG TAB PO ONE (06:05)
[2024-10-25] MEDS: ATORVASTATIN 80 MG TAB PO ONE (06:28)
[2024-10-25] MEDS ORDERED: HEPARIN SODIUM,PORCINE (1 ML) 2,500 UNIT in SODIUM CHLORIDE 0.9% 250 ML IRRIGATION PRN (07:00)
[2024-10-25] MEDS ORDERED: HEPARIN SODIUM,PORCINE 10,000 UNIT in SODIUM CHLORIDE 0.9% 1,000 ML IRRIGATION PRN (07:00)
[2024-10-25 07:26] LABS: Basophils # (A) 0.06 10*3/uL (0.00-0.10); Basophils % (A) 0.8 %; Eosinophils # (A) 0.14 10*3/uL (0.04-0.35); Eosinophils % (A) 1.8 %; HCT 41.7 % (37.2-46.3); HGB 14.0 g/dL (12.0-15.0); Lymphocytes # (A) 1.43 10*3/uL (0.90-5.00); Lymphocytes % (A) 18.4 %; MCH 32.9 pg (27.0-32.0); MCHC 33.6 g/dL (32.0-37.0); MCV 97.9 fL (80.0-97.0); Monocytes # (A) 0.56 10*3/uL (0.20-1.00); Monocytes % (A) 7.2 %; Neutrophils # (A) 5.54 10*3/uL (1.80-7.70); Neutrophils % (A) 71.4 %; Platelet Count 204 10*3/uL (140-440); RBC 4.26 10*6/uL (4.10-5.20); RDW 12.0 % (11.5-14.5); WBC 7.76 10*3/uL (4.50-10.00)
[2024-10-25] MEDS: METOPROLOL SUCCINATE (ER) 100 MG TAB.ER.24H PO SCH (08:15)
[2024-10-25 08:22] VITALS: RESP 16
[2024-10-25] MEDS: METOPROLOL SUCCINATE (ER) 25 MG TAB.ER.24H PO STA (08:22)
[2024-10-25] MEDS: LIDOCAINE 1% INJ 10MG/ML (20 ML MDV) SQ ONE (10:32)
[2024-10-25] MEDS: fentaNYL (PF) 50 MCG/ML 2 ML AMP IVP ONE (10:34)
[2024-10-25] MEDS: MIDAZOLAM 2 MG/2 ML VIAL IVP ONE (10:34)
[2024-10-25] MEDS: VERAPAMIL SYRINGE (5 MG/10 ML) INTRAARTER ONE (10:34)
[2024-10-25] MEDS: HEPARIN SODIUM 1,000 UN/ML (10ML VL) IVP ONE (10:54)
[2024-10-25] MEDS: IV FLUID CONTINUATION 1,000 ML IV ONE (10:56)
[2024-10-25] MEDS: HEPARIN SODIUM,PORCINE (1 ML) 2,500 UNIT in SODIUM CHLORIDE 0.9% 250 ML IRRIGATION ONE (10:56)
[2024-10-25] MEDS: HEPARIN SODIUM (1,000 UNIT/ML) 1,000 UNIT in SODIUM CHLORIDE 0.9% 1,000 ML IRRIGATION ONE (10:56)
[2024-10-25] MEDS: IOPAMIDOL-370 100ML BTL INJ ONE ×2 (11:02→11:09)
--- NOTE | 2024-10-25 11:05 | P.PN ---
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 She has a past medical history of colon cancer status post colon resection 26 years ago, intolerance to statins. We have been asked to evaluate the patient for A-fib with RVR NSTEMI. Patient states that around 2 AM she developed chest pain that started first. She thought it was just heartburn or indigestion and she took some Tums without relief. Following that she took antiacid pill without relief. She also developed sweating and by 5:00 she woke up her and came into the hospital for further evaluation. She also states that it felt like her heart was pounding harder. The chest pain started first and the pounding started second. She states her symptoms are gone now. She has been started on heparin drip and Cardizem drip currently at 5 mg/h. Blood pressure 127/103, blood pressure 111, pulse ox 90% on 2 L nasal cannula. She presented with heart rate in the 150s. She was found to be in atrial fibrillation. In the past, she has tried Crestor, pravastatin, as well as a third statin. She was recently at her PCP office and was encouraged to start a statin as well as Zetia which she refused. Patient does ride an exercise bike on a regular basis and does not experience chest pain. Dr. Prakash discussed with the patient and her the plan to obtain repeat troponins, echocardiogram and determine if patient may require cardiac catheterization. -EKG: Atrial fibrillation 134 bpm. -Chest x-ray: No acute process. -Laboratory studies: Troponin 0.227, proBNP 229. BUN 18, creatinine 0.74, potassium 4.3 WBC 7.8, hemoglobin 15.8. -Home cardiac medications: None. -Echocardiogram performed in 2019 at [facility] revealed EF 55 to 60%, mild aortic valve sclerosis, mild mitral regurgitation, trace tricuspid regurgitation. 10/24/2024 Patient seen and examined. Patient states that she is feeling much better today. She denies chest pain or chest pressure, no palpitations. She remains in atrial fibrillation with heart rate running 101-138. Patient remains on Cardizem drip at 5 mg/h. Triglycerides 133, cholesterol 292, LDL 188. Repeat troponin 0.902 and 1.01. Echocardiogram reveals EF of 55 to 60%, mild mitral regurgitation, moderate eccentric tricuspid regurgitation. Dr. Nguyễn Prakash discussed with the patient and recommendations for cardiac catheterization. Patient is agreeable and we will plan to move forward with this tomorrow if heart rate is controlled. 10/25/2024 Patient seen and examined. Patient was weaned off Cardizem drip but this was resumed currently at 10 mg/h. She is scheduled for cardiac catheterization today. Blood pressure 110/77, heart rate 95, pulse ox 97% on room air. Physical examination: Gen: This is 84-year-old female in no acute distress VS: reviewed HEENT: Head is atraumatic, normocephalic. Pupils equal, round. Sclerae is anicteric. NECK: Supple. No JVD. LUNGS: Clear to auscultation. No wheezes or rhonchi. No intercostal retractions. HEART: Irregular rate and rhythm. ABDOMEN: Soft No tenderness. EXTREMITIES: No pedal edema. No calf tenderness. NEUROLOGICAL: Patient is awake, alert and oriented x3. Assessment: New onset paroxysmal atrial fibrillation with RVR NSTEMI History of colon cancer status post colon resection Hyperlipidemia Plan: C decrease Cardizem drip to 5 mg/h Increase metoprolol succinate to 100 mg daily Continue patient on aspirin 81 mg daily Hold on statin as patient refuses Patient is scheduled for cardiac catheterization today with Dr. Nguyễn Prakash N.p.o. Further recommendations to follow based upon clinical course Nurse practitioner note has been reviewed, I agree with documented findings and plan of care. Patient was seen and examined. Objective - Vital Signs Vital signs: Vital Signs Temp 98.2 F 10/25/24 04:00 Pulse 95 10/25/24 08:21 Resp 16 10/25/24 08:21 BP 110/77 10/25/24 08:21 Pulse Ox 97 10/25/24 08:21 FiO2 Intake & Output 10/24/24 10/25/24 10/25/24 18:59 06:59 18:59 Intake Total 1860 899.391 67.188 Balance 1860 899.391 67.188 Weight 74.5 kg Intake: Intake, IV Titration 359.391 67.188 Amount Diltiazem 125 mg In 135.083 24.834 Dextrose 5% in Water 100 ml @ 5 MG/HR 5 mls/hr IV .Q24H [facility] Rx#:[id number] Heparin Sodium,Porcine/ 224.308 42.354 D5w 25,000 unit In Empty Bag 1 bag @ 12 UNIT/KG/HR 8.165 mls/hr IV .Q24H [facility] Rx#:[id number] Oral 1860 540 Other: Voiding Method Toilet Toilet # Voids 2 1 - Labs CBC & Chem 7: 10/25/24 06:57 10/24/24 15:54 Labs: Abnormal Lab Results - Last 24 Hours (Table) 10/24/24 10/25/24 Range/Units 15:54 06:57 MCV 97.9 H (80.0-97.0) fL MCH 32.9 H (27.0-32.0) pg Chloride 108 H (98-107) mmol/L BUN 22 H (7-17) mg/dL Glucose 104 H (74-99) mg/dL Total Protein 5.9 L (6.3-8.2) g/dL
[2024-10-25] MEDS ORDERED: RX INFO: IV CONTRAST WAS GIVEN 1 EACH MISC MISCELLANE PRN (11:59)
[2024-10-25] MEDS: SODIUM CHLORIDE 0.9% 1,000 ML IV SCH (13:04)
--- NOTE | 2024-10-25 13:48 | CC ---
CARDIAC CATHETERIZATION REPORT INDICATION: Unstable angina. PROCEDURE NOTE: After obtaining informed consent, left heart catheterization and coronary angiogram were performed via the right radial artery using standard Amy catheters. The patient tolerated the procedure well without any obvious immediate complications. Total sedation time was 30 minutes. Next, a TR band will be used for hemostasis. Right radial artery access was obtained using Seldinger technique, 6-Guyanese sheath was placed. Catheters and wires were floated into the ascending aorta under fluoroscopic guidance. I could not selectively engage the right coronary artery. I used a Amy Amplatz catheters. I visualized it subselectively on the aortogram. FINDINGS: 1. Hemodynamics: Left ventricular end-diastolic pressure is 8 to 10 mm. There is no significant gradient across the aortic valve. 2. Left ventriculogram: Left ventriculogram is not performed. 3. Aortogram was performed to locate the right coronary artery. Ascending aorta appears mildly dilated. No evidence of aortic regurgitation. 4. Coronaries: Right coronary artery was subselectively visualized on the aortogram. 5. Left main coronary artery is a normal-sized vessel, was free of stenosis. Divides into left anterior descending coronary artery and circumflex coronary artery. LAD and its branches, circumflex coronary artery and its branches are free of significant stenosis. CONCLUSIONS: Normal left coronary system, subselectively visualized right coronary artery. PLAN: The patient will continue with rate control anticoagulation and cardioversion down the road. If she has any further episodes of chest pain, I will consider doing a stress test and if she has ischemia in the right coronary artery, consider CT angiogram, if necessary. MMODL / IJN: [id number] /
[2024-10-25] MEDS: AMIODARONE 200 MG TAB PO SCH (15:04)
[2024-10-25] MEDS: APIXABAN 5 MG TAB PO SCH (17:02)
--- NOTE | 2024-10-25 19:01 | P.PN ---
Subjective Progress Note Date: 10/25/24 Chief Complaint: Atrial fibrillation with RVR HISTORY OF PRESENT ILLNESS: This is an 84-year-old female with a previous medical history significant for mixed hyperlipidemia, history of colon cancer in the past status post partial colectomy currently in remission, history of melanoma, history of osteoporosis, patient woke up at 2:00 in the morning from sleep because of heaviness in her chest associated with a cold sweat, she thought that she is having indigestion, she took 2 Tums followed by another 2 times, with no relief, she started to have the cold sweat at that time, she felt palpitation as well as shortness of breath, she ended up waking up her who brought her to the emergency department for evaluation, she was found to be in atrial fibrillation with rapid regular spots, her troponin was slightly elevated at 0.22 she was started on heparin drip and Cardizem drip, she was seen in the emergency department, she is currently on Cardizem drip at 5 mg/h, her heart rate is around 122, she is also on baby aspirin 81 mg once every day, patient is in tolerant of statin that she does not want take any statin at this point in time, she will be seen in consultation by cardiology, continue patient on the current treatment plan, add metoprolol succinate ER 50 mg once every day, admit the patient to telemetry unit, echocardiogram for evaluation of LV function. 10/24: Patient sitting up in bed she continues to have minimal shortness of breath, her heart rate is down to 110 continues to be in atrial fibrillation somewhat fast response, her metoprolol ER was increased to 75 mg once every day, continue Cardizem drip, continue heparin drip, she is scheduled to go for left heart catheterization, she ended up going for an echocardiogram that showed evidence of normal LV function, with moderate mitral regurgitation, and severe calcification of the aortic valve, no gradient was calculated, patient is scheduled for heart cath tomorrow morning, she is aware of the plan, continue current treatment plan for now. I had a long conversation with the patient about the importance of taking statin however she is intolerant of statin therefore the patient can be started on Repatha 140 mg subcutaneously every 2 weeks or inclisiran once every 6-month the first year 3 doses and 2 doses thereafter. 10/25: Patient is sitting up in bed in no apparent distress, she just got back from the left heart catheterization, that showed normal left main artery, normal LAD and LCx, they were not able to selectively cannulate the right coronary artery, patient tolerated procedure very well, the left ventricular end- diastolic pressure was low, there was no significant gradient across the aortic valve, ventriculogram was not done, patient was admitted back to the floor, she was increased on metoprolol 200 mg orally once every day, she was kept on Eliquis 5 mg orally twice every day, her heart rate started to increase she was started on amiodarone 400 mg orally twice every day, therefore the patient will be kept in the hospital for another 24 hours, hopefully she will be able to discharge home tomorrow morning. REVIEW OF SYSTEMS: Constitutional: No documented fever, no chills, no night sweats. No weight change. No weakness, fatigue or lethargy. No daytime sleepiness. EENT: No headache. No blurred vision or double vision, no loss of vision. No l oss of Hearing, no ringing in the ears, no dizziness. No nasal drainage or congestion. No epistaxis. No sore throat. Lungs: Positive for shortness of breath, no cough, no sputum production. No whe ezing. Reports dyspnea with activity. Cardiovascular: No chest pain, no lower extremity edema. Positive for palpitations. No paroxysmal nocturnal dyspnea. No orthopnea. No lightheadedness or dizziness. No syncopal episodes. Abdominal: Reports abdominal pain. No nausea, vomiting. No diarrhea. No constipation. No bloody or tarry stools reports loss of appetite. Genitourinary: No dysuria, increased frequency, urgency. No urinary retention. Musculoskeletal: No myalgias. No muscle weakness, no gait dysfunction, no frequent falls. No back pain. No neck pain. Positive for right shoulder pain. Integumentary: No wounds, no lesions. No rash or pruritus. No unusual bruising. No change in hair or nails. Neurologic: No aphasia. No facial droop. No change in mentation. No head injury. No headache. No paralysis. No paresthesia. Psychiatric: No depression. No anxiety. No mood swings. Endocrine: No abnormal blood sugars. No weight change. PHYSICAL EXAMINATION: General: 84-year-old female laying down in bed in no apparent distress. HEENT: Head is atraumatic, normocephalic, pupils were equal round reactive to light and recommendation, extraocular muscle movement were intact, sclera nonicteric, conjunctivae were pale, mucous membranes of the mouth are somewhat dry. Neck: Supple, no JVP, normal carotid upstroke bilaterally, no lymphadenopathy. Chest: Decreased breath sounds at the bases, few rhonchi, no expiratory wheezes, no chest wall tenderness, no intercostal retractions. Heart: First heart sound is normal, second heart sounds normal, there are systolic ejection murmur 2/6 located in the left sternal border, irregularly irregular due to atrial fibrillation Abdomen: Soft, nontender, nondistended, positive bowel sounds. Extremities: There is no edema no calf tenderness DP +2 bilaterally. Neurologic examination: Patient is awake alert and oriented x3, cranial nerves II-12 appear grossly intact, muscle power were 5 out of 5 in upper extremities and 5 out of 5 in bilateral lower extremities, deep tendon reflexes normal bilaterally. ASSESSMENT AND PLAN: 1. Atrial fibrillation with rapid ventricular response. Continue metoprolol ER 100 mg once every day, patient will be started on Eliquis 5 mg orally twice every day, patient underwent left heart catheterization that showed no evidence of any coronary artery disease. Patient also was started on digoxin 250 mcg orally once every day. 2. 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 Echocardiogram was reviewed, baby aspirin 81 mg once every day, metoprolol ER 100 mg once every day, patient was started on atorvastatin 80 mg once every day, she may need to be started on Repatha 140 mg subcutaneously every 14 days, keep her LDL less than 50, patient did have left heart catheterization that showed normal left main, LAD, LCx, could not cannulate the RCA, normal LV diastolic pressure, and no ventriculogram was done. 3. Mixed hyperlipidemia.. Patient is not able to tolerate statin at this time, she may be a candidate for PCSK9 inhibitors. Patient was given a dose of atorvastatin 80 mg once every day. 4. History of osteoporosis stable at this time. 5. History of colon cancer status post partial colectomy currently in remission. 6. History of melanoma status post resection. 7. Tendinitis of the right shoulder stable at this time. 8. DVT prophylaxis. Eliquis 5 mg orally twice every day. 9. GI prophylaxis. Continue Protonix 40 mg once every day. 10. Likely home tomorrow morning . Objective - Vital Signs Vital signs: Vital Signs Temp 98.2 F 10/25/24 04:00 Pulse 71 10/25/24 12:17 Resp 16 10/25/24 12:17 BP 127/83 10/25/24 12:17 Pulse Ox 95 10/25/24 12:17 FiO2 Intake & Output 10/24/24 10/25/24 10/25/24 18:59 06:59 18:59 Intake Total 1860 899.391 610.559 Balance 1860 899.391 610.559 Weight 74.5 kg Intake: IV 500 Intake, IV Titration 359.391 110.559 Amount Diltiazem 125 mg In 135.083 24.834 Dextrose 5% in Water 100 ml @ 5 MG/HR 5 mls/hr IV .Q24H [facility] Rx#:[id number] Heparin Sodium,Porcine/ 224.308 85.725 D5w 25,000 unit In Empty Bag 1 bag @ 12 UNIT/KG/HR 8.165 mls/hr IV .Q24H [facility] Rx#:[id number] Oral 1860 540 Other: Voiding Method Toilet Toilet # Voids 2 1 - Labs CBC & Chem 7: 10/25/24 06:57 10/24/24 15:54 Labs: Abnormal Lab Results - Last 24 Hours (Table) 10/24/24 10/25/24 Range/Units 15:54 06:57 MCV 97.9 H (80.0-97.0) fL MCH 32.9 H (27.0-32.0) pg Chloride 108 H (98-107) mmol/L BUN 22 H (7-17) mg/dL Glucose 104 H (74-99) mg/dL Total Protein 5.9 L (6.3-8.2) g/dL
[2024-10-25] MEDS: ACETAMINOPHEN TAB 325 MG TAB PO PRN (20:29)
[2024-10-25 20:59] VITALS: TEMP 97.4
[2024-10-26 06:49] LABS: Basophils # (A) 0.04 10*3/uL (0.00-0.10); Basophils % (A) 0.7 %; Eosinophils # (A) 0.11 10*3/uL (0.04-0.35); Eosinophils % (A) 1.8 %; HCT 41.3 % (37.2-46.3); HGB 13.7 g/dL (12.0-15.0); Lymphocytes # (A) 1.29 10*3/uL (0.90-5.00); Lymphocytes % (A) 21.2 %; MCH 32.6 pg (27.0-32.0); MCHC 33.2 g/dL (32.0-37.0); MCV 98.3 fL (80.0-97.0); Monocytes # (A) 0.50 10*3/uL (0.20-1.00); Monocytes % (A) 8.2 %; Neutrophils # (A) 4.13 10*3/uL (1.80-7.70); Neutrophils % (A) 67.8 %; Platelet Count 200 10*3/uL (140-440); RBC 4.20 10*6/uL (4.10-5.20); RDW 12.2 % (11.5-14.5); WBC 6.09 10*3/uL (4.50-10.00)
[2024-10-26 07:32] LABS: ALT 13 U/L (4-34); AST 19 U/L (14-36); African American GFR (CKD) 73 (>60 ml/min/1.73 sqM); Albumin 3.4 g/dL (3.5-5.0); Alkaline Phosphatase 63 U/L (38-126); Anion Gap 7 mmol/L; Blood Urea Nitrogen 17 mg/dL (7-17); Calcium 9.4 mg/dL (8.4-10.2); Carbon Dioxide 23 mmol/L (22-30); Chloride 109 mmol/L (98-107); Glucose 89 mg/dL (74-99); Non-African American GFR(CKD) 64 (>60 ml/min/1.73 sqM); Potassium 4.2 mmol/L (3.5-5.1); Sodium 139 mmol/L (137-145); Total Protein 5.5 g/dL (6.3-8.2)
[2024-10-26] MEDS: DILTIAZEM ORAL 30 MG TAB PO SCH (09:44)
--- NOTE | 2024-10-26 10:53 | P.PN ---
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 She has a past medical history of colon cancer status post colon resection 26 years ago, intolerance to statins. We have been asked to evaluate the patient for A-fib with RVR NSTEMI. Patient states that around 2 AM she developed chest pain that started first. She thought it was just heartburn or indigestion and she took some Tums without relief. Following that she took antiacid pill without relief. She also developed sweating and by 5:00 she woke up her and came into the hospital for further evaluation. She also states that it felt like her heart was pounding harder. The chest pain started first and the pounding started second. She states her symptoms are gone now. She has been started on heparin drip and Cardizem drip currently at 5 mg/h. Blood pressure 127/103, blood pressure 111, pulse ox 90% on 2 L nasal cannula. She presented with heart rate in the 150s. She was found to be in atrial fibrillation. In the past, she has tried Crestor, pravastatin, as well as a third statin. She was recently at her PCP office and was encouraged to start a statin as well as Zetia which she refused. Patient does ride an exercise bike on a regular basis and does not experience chest pain. Dr. Prakash discussed with the patient and her the plan to obtain repeat troponins, echocardiogram and determine if patient may require cardiac catheterization. -EKG: Atrial fibrillation 134 bpm. -Chest x-ray: No acute process. -Laboratory studies: Troponin 0.227, proBNP 229. BUN 18, creatinine 0.74, potassium 4.3 WBC 7.8, hemoglobin 15.8. -Home cardiac medications: None. -Echocardiogram performed in 2019 at [facility] revealed EF 55 to 60%, mild aortic valve sclerosis, mild mitral regurgitation, trace tricuspid regurgitation. 10/24/2024 Patient seen and examined. Patient states that she is feeling much better today. She denies chest pain or chest pressure, no palpitations. She remains in atrial fibrillation with heart rate running 101-138. Patient remains on Cardizem drip at 5 mg/h. Triglycerides 133, cholesterol 292, LDL 188. Repeat troponin 0.902 and 1.01. Echocardiogram reveals EF of 55 to 60%, mild mitral regurgitation, moderate eccentric tricuspid regurgitation. Dr. Nguyễn Prakash discussed with the patient and recommendations for cardiac catheterization. Patient is agreeable and we will plan to move forward with this tomorrow if heart rate is controlled. 10/25/2024 Patient seen and examined. Patient was weaned off Cardizem drip but this was resumed currently at 10 mg/h. She is scheduled for cardiac catheterization today. Blood pressure 110/77, heart rate 95, pulse ox 97% on room air. 10/26/2024 Patient seen and examined. Yesterday patient underwent cardiac catheterization that showed no obstructive coronary artery disease. Patient's heart rate was running in the 80s and she was taken off Cardizem drip prior to the cardiac catheterization. However, once patient returned to her room and in the afternoon, her heart rate started going up into the low 100s to 120. Patient was resumed on Eliquis and started on amiodarone 400 mg twice daily and continued on digoxin and Toprol XL 100 mg daily. Patient did have improvement of her heart rate but this morning she is running between 107 and 131. Digoxin will be discontinued and patient started on Cardizem. Physical examination: Gen: This is 84-year-old female in no acute distress VS: reviewed HEENT: Head is atraumatic, normocephalic. Pupils equal, round. Sclerae is anicteric. NECK: Supple. No JVD. LUNGS: Clear to auscultation. No wheezes or rhonchi. No intercostal retractions. HEART: Irregular rate and rhythm. ABDOMEN: Soft No tenderness. EXTREMITIES: No pedal edema. No calf tenderness. NEUROLOGICAL: Patient is awake, alert and oriented x3. Assessment: New onset paroxysmal atrial fibrillation with RVR NSTEMI History of colon cancer status post colon resection Hyperlipidemia Plan: Continue Eliquis 5 mg twice daily, metoprolol succinate 100 mg daily Discontinue aspirin Discontinue digoxin Start patient on Cardizem 30 mg 3 times daily If heart rate is controlled this afternoon, patient is cleared for discharge fr cardiology. Patient will follow-up in the office with Dr. Nguyễn Prakash in 2 weeks. Nurse practitioner note has been reviewed, I agree with documented findings and plan of care. Patient was seen and examined. Objective - Vital Signs Vital signs: Vital Signs Temp 97.4 F L 10/25/24 20:00 Pulse 105 H 10/26/24 08:00 Resp 16 10/26/24 08:00 BP 114/87 10/26/24 08:00 Pulse Ox 95 10/26/24 08:00 FiO2 Intake & Output 10/25/24 10/26/24 10/26/24 18:59 06:59 18:59 Intake Total 1178.559 540 110 Balance 1178.559 540 110 Weight 70.4 kg Intake: IV 950 Sodium Chloride 0.9% 1, 450 000 ml @ 75 mls/hr IV . [id number] [facility] Rx#:[id number] Intake, IV Titration 110.559 Amount Diltiazem 125 mg In 24.834 Dextrose 5% in Water 100 ml @ 5 MG/HR 5 mls/hr IV .Q24H [facility] Rx#:[id number] Heparin Sodium,Porcine/ 85.725 D5w 25,000 unit In Empty Bag 1 bag @ 12 UNIT/KG/HR 8.165 mls/hr IV .Q24H [facility] Rx#:[id number] Oral 118 540 110 Other: Voiding Method Toilet # Voids 1 - Labs CBC & Chem 7: 10/26/24 06:17 10/26/24 06:17 Labs: Abnormal Lab Results - Last 24 Hours (Table) 10/26/24 10/26/24 Range/Units 06:17 06:17 MCV 98.3 H (80.0-97.0) fL MCH 32.6 H (27.0-32.0) pg Chloride 109 H (98-107) mmol/L Total Protein 5.5 L (6.3-8.2) g/dL Albumin 3.4 L (3.5-5.0) g/dL
[2024-10-26 11:35] VITALS: BP 139/76
[2024-10-26 13:02] VITALS: PULSE 78
--- NOTE | 2024-10-28 22:36 | P.DS ---
Providers Date of admission: 10/23/24 08:08 Expected date of discharge: 10/26/24 Attending physician: Jayro Payton Consults: 10/23/24 08:00 Consult Physician Urgent Consulting Provider: Artem Thorne Consult Reason/Comments: afib rvr, NSTEMI Do you want consulting provider notified?: Yes Primary care physician: Jayro Payton Hospital Course: HISTORY OF PRESENT ILLNESS: This is an 84-year-old female with a previous medical history significant for mixed hyperlipidemia, history of colon cancer in the past status post partial colectomy currently in remission, history of melanoma, history of osteoporosis, patient woke up at 2:00 in the morning from sleep because of heaviness in her chest associated with a cold sweat, she thought that she is having indigestion, she took 2 Tums followed by another 2 times, with no relief, she started to have the cold sweat at that time, she felt palpitation as well as shortness of breath, she ended up waking up her who brought her to the emergency department for evaluation, she was found to be in atrial fibrillation with rapid regular spots, her troponin was slightly elevated at 0.22 she was started on heparin drip and Cardizem drip, she was seen in the emergency department, she is currently on Cardizem drip at 5 mg/h, her heart rate is around 122, she is also on baby aspirin 81 mg once every day, patient is intolerant of statin that she does not want take any statin at this point in time, she will be seen in consultation by cardiology, continue patient on the current treatment plan, add metoprolol succinate ER 50 mg once every day, admit the patient to telemetry unit, echocardiogram for evaluation of LV function. 10/24: Patient sitting up in bed she continues to have minimal shortness of breath, her heart rate is down to 110 continues to be in atrial fibrillation somewhat fast response, her metoprolol ER was increased to 75 mg once every day, continue Cardizem drip, continue heparin drip, she is scheduled to go for left heart catheterization, she ended up going for an echocardiogram that showed evidence of normal LV function, with moderate mitral regurgitation, and severe calcification of the aortic valve, no gradient was calculated, patient is scheduled for heart cath tomorrow morning, she is aware of the plan, continue current treatment plan for now. I had a long conversation with the patient about the importance of taking statin however she is intolerant of statin therefore the patient can be started on Repatha 140 mg subcutaneously every 2 weeks or inclisiran once every 6-month the first year 3 doses and 2 doses thereafter. 10/25: Patient is sitting up in bed in no apparent distress, she just got back from the left heart catheterization, that showed normal left main artery, normal LAD and LCx, they were not able to selectively cannulate the right coronary artery, patient tolerated procedure very well, the left ventricular end- diastolic pressure was low, there was no significant gradient across the aortic valve, ventriculogram was not done, patient was admitted back to the floor, she was increased on metoprolol 200 mg orally once every day, she was kept on Eliquis 5 mg orally twice every day, her heart rate started to increase she was started on amiodarone 400 mg orally twice every day, therefore the patient will be kept in the hospital for another 24 hours, hopefully she will be able to discharge home tomorrow morning. 10/26: Patient sitting up in bed in no apparent distress, her heart rate is much better, she was started yesterday on amiodarone 400 mg orally twice every day Eliquis 5 mg orally twice every day, continue metoprolol ER 100 mg once every day, patient is ambulating very well, her heart rate was quite elevated today despite the amiodarone and metoprolol, she was started on Cardizem 30 mg orally 3 times every day, patient can be discharged home today and follow-up with me as an outpatient next week, follow-up with cardiology per the recommendation. Discharge diagnoses: 1. Atrial fibrillation with rapid ventricular response. 2. Type II NM likely related to A-fib with RVR/non-ST elevation NM status post left heart catheterization that showed normal left main artery LAD LCx RCA could not be studied. 3. Mixed hyperlipidemia.. 4. History of osteoporosis 5. History of colon cancer status post partial colectomy currently in [facility]. 6. History of melanoma status post resection. 7. Tendinitis of the right shoulder Patient Condition at Discharge: Fair Plan - Discharge Summary New Discharge Prescriptions: New Aspirin 81 mg PO DAILY tab Amiodarone [Cordarone] 400 mg PO BID #60 tab Pantoprazole [Protonix] 40 mg PO AC-BRKFST #30 tab Metoprolol Succinate (ER) [Toprol XL] 100 mg PO DAILY #30 tab Apixaban [Eliquis] 5 mg PO BID 30 Days #60 tab Nitroglycerin Sl Tabs [Nitrostat] 0.4 mg SUBLINGUAL Q5M PRN #25 tab PRN Reason: Chest Pain No Action No Known Home Medications Discharge Medication List No Known Home Medications 10/23/24 [History] Amiodarone [Cordarone] 400 mg PO BID #60 tab 10/26/24 [Rx] Apixaban [Eliquis] 5 mg PO BID 30 Days #60 tab 10/26/24 [Rx] Aspirin 81 mg PO DAILY tab 10/26/24 [Rx] Metoprolol Succinate (ER) [Toprol XL] 100 mg PO DAILY #30 tab 10/26/24 [Rx] Nitroglycerin Sl Tabs [Nitrostat] 0.4 mg SUBLINGUAL Q5M PRN #25 tab 10/26/24 [Rx] Pantoprazole [Protonix] 40 mg PO AC-BRKFST #30 tab 10/26/24 [Rx] Follow up Appointment(s)/Referral(s): Jayro Payton MD [Primary Care Provider] - 1 Week Sabino Prakash MD [STAFF PHYSICIAN] - 2 Weeks (Spoke to [place]. Office will call with appointment time) Patient Instructions/Handouts: *Surgery [facility] - After Heart Catheterization - [place] Instructions, A-fib (Atrial Fibrillation) (DC), Safe Use of Anticoagulants (DC) Activity/Diet/Wound Care/Special Instructions: New med- Cardizem-30mg 3 x day Discharge Disposition: HOME SELF-CARE
== END 2024-10-26 14:22 | disposition home or self-care (01) | DRG 282 ==
LOC: EC 05:47 → 3SCARD 08:08
PROVIDERS: ADMIT Internal Medicine; ATTEND Internal Medicine
PROC: 3E033RZ Introduction of Antiarrhythmic into Peripheral Vein, Percutaneous Approach (ICD-10-PCS; 2024-10-23)
PROC: B2111ZZ Fluoroscopy of Multiple Coronary Arteries using Low Osmolar Contrast (ICD-10-PCS; 2024-10-25)
PROC: 4A023N7 Measurement of Cardiac Sampling and Pressure, Left Heart, Percutaneous Approach (ICD-10-PCS; principal; 2024-10-25 10:30)
DX: I48.0 Paroxysmal atrial fibrillation (principal); I21.A1 Myocardial infarction type 2; I08.3 Combined rheumatic disorders of mitral, aortic and tricuspid valves; E78.2 Mixed hyperlipidemia; M81.0 Age-related osteoporosis without current pathological fracture; M19.90 Unspecified osteoarthritis, unspecified site; M75.21 Bicipital tendinitis, right shoulder; Z96.652 Presence of left artificial knee joint; Z85.038 Personal history of other malignant neoplasm of large intestine; Z85.820 Personal history of malignant melanoma of skin; Z90.49 Acquired absence of other specified parts of digestive tract
CPT/HCPCS: 36415; 71046; 80053; 80061; 83735; 83880; 84484; 85025; 85610; 85730; 93005; 93306; 96365; 96366; 96368; 99291